=== PATIENT | male | born 1950 | race Caucasian/White ===

== ENCOUNTER 2017-08-02 07:14 | Emergency (ER) | payer BC, MEDICARE ==
--- NOTE | 2017-08-02 07:45 | Emergency Department Record ---
History of Present Illness - General Chief Complaint: Abdominal Pain Stated Complaint: RLQ PAIN Time Seen by Provider: 08/02/17 07:28 Source: Patient Mode of Arrival: Ambulatory Limitations: No limitations - History of Present Illness Initial Comments: The patient is here due to RLQ pain for one day. The onset was yesterday and the pain has gradually worsened. The pain is sharp and aching and is not associated with any nausea, vomiting, diarrhea, dysuria, or fever. He has had a kidney stone in the past and has had bladder CA along with his gallbladder removed. Additionally he has had a R lower groin hernia repair many years ago. The patient does get worse with R hip and leg ROM at times. MD Complaint: Abdominal pain Onset/Timin -: Days(s) Location: RLQ Radiation: Back Severity scale (1-10): 6 Quality: Sharp Consistency: Constant Improves With: Nothing Worsens With: Movement Associated Symptoms: Denies other symptoms - Related Data Home Medications Medication Instructions Recorded Confirmed Last Taken Clopidogrel Bisulfate [Clopidogrel] 75 mg PO DAILY 08/02/17 08/02/17 Unknown Lisinopril 20 mg PO DAILY 08/02/17 08/02/17 Unknown Metformin HCl 1,000 mg PO BID 08/02/17 08/02/17 Unknown Metoprolol Tartrate 25 mg PO DAILY 08/02/17 08/02/17 Unknown Omeprazole [Prilosec] 20 mg PO DAILY 08/02/17 08/02/17 Unknown Pioglitazone HCl 45 mg PO DAILY 08/02/17 08/02/17 Unknown Allergies Allergy/AdvReac Type Severity Reaction Status Date / Time No Known Drug Allergies Allergy Verified 08/02/17 07:34 Travel Screening - Travel/Exposure Within Last 30 Days Have you traveled within the last 30 days?: No Review of Systems Constitutional: Denies: Chills, Fever Eyes: Denies: Eye discharge ENT: Denies: Congestion Respiratory: Denies: Cough, Dyspnea Past Medical History - SOCIAL HISTORY Smoking Status: Never smoker Alcohol Use: Rare Drug Use: None - RESPIRATORY Hx Respiratory Disorders: No - CARDIOVASCULAR Hx Cardio Disorders: Yes Hx Abnormal EKG: Yes Hx Hypertension: Yes - NEURO Hx Neuro Disorders: No - GI Hx GI Disorders: Yes Hx Reflux: Yes - Hx Genitourinary Disorders: Yes Hx Kidney Stones: Yes Hx Prostate Problems: Yes - ENDOCRINE Hx Endocrine Disorders: Yes Hx Diabetes: Yes (type 2) - MUSCULOSKELETAL Hx Musculoskeletal Disorders: Yes Hx Arthritis: Yes - PSYCH Hx Psych Problems: No - HEMATOLOGY/ONCOLOGY Hx Hematology/Oncology Disorders: Yes Hx Cancer: Yes Hx Chemotherapy: Yes Hx Radiation Therapy: No Family Medical History Any Significant Family History?: No Physical Exam - General General Appearance: Alert, Oriented x3, Cooperative, No acute distress - Head Head exam: Atraumatic, Normocephalic, Normal inspection - Eye Eye exam: Normal appearance, PERRL - Neck Neck exam: Normal inspection, Full ROM. negative: Tenderness - Respiratory Respiratory exam: Normal lung sounds bilaterally. negative: Respiratory distress - Cardiovascular Cardiovascular Exam: Regular rate, Normal rhythm, Normal heart sounds - GI/Abdominal GI/Abdominal exam: Soft, Normal bowel sounds, Tenderness (There is mild RLQ tenderness to palpation). negative: Rebound, Rigid - Extremities Extremities exam: Normal inspection, Full ROM, Normal capillary refill. negative: Tenderness - Neurological Neurological exam: Alert. negative: Motor sensory deficit Course Vital Signs 08/02/17 07:17 Temperature 97.7 F Pulse Rate 56 L Respiratory 20 Rate Blood Pressure 176/93 Pulse Ox 98 - Reevaluation(s) Reevaluation #1: The patient is doing better at this time. He is having no pain at rest but is having pain with abdominal wall flexing and ROM of the R hip. At this time the pain seems to be more muscular in origin. I did explain the normal lab, CT, and UA results. I also did discuss the very mildly elevated Lipase but do not feel that is the cause of his issues. He is to see his family doctor for recheck later this week or early next week and to take Tylenol for pain. 08/02/17 09:24 Medical Decision Making - Data Complexity MDM Data: Labs Ordered and/or Reviewed, X-Ray Ordered and/or Reviewed - Lab Data Result diagrams: 08/02/17 07:47 08/02/17 07:47 - Radiology Data Radiology results: Report reviewed (CT: Neg kidney stone or hydro. Neg for any acute abnormality.) Disposition Disposition: Discharge Clinical Impression: Abdominal pain Qualifiers: Abdominal location: right lower quadrant Qualified Code(s): R10.31 - Right lower quadrant pain Disposition: Home, Self-Care Condition: (2) Stable Instructions: Abdominal Pain (ED) Additional Instructions: Please take Tylenol for pain and please see your family doctor for recheck later this week. Return to the ER for any worsening pain, fever, or vomiting. Forms: Patient Portal Access Time of Disposition: 09:27 Quality - Quality Measures Quality Measures: N/A - Blood Pressure Screening View Details: Yes Does Patient Have Any of the Following: Active Dx of HTN Blood Pressure Classification: Hypertensive Reading Systolic Measurement: 176 Diastolic Measurement: 93 Screening for High Blood Pressure: Patient Exclusion, Hx of HTN [[id number]]
[2017-08-02 07:58] LABS: BASO % 0.8 % (0-6); EOS % 5.3 % (0-6); GRAN % 57.2 % (47-80); HEMATOCRIT 40.8 % (42.0-52.0); HEMOGLOBIN 13.6 gm/dl (14.0-18.0); LYMPH % 25.5 % (16-45); MEAN CELL VOLUME 89.5 fl (81-97); MEAN CORPUSCULAR HEMOGLOBIN 29.8 pg (27-33); MEAN CORPUSCULAR HGB CONC 33.3 g/dl (32-36); MEAN PLATELET VOLUME 11.2 fl (7.4-10.4); MONO % 11.2 % (0-9); PLATELET COUNT 98 K/uL (130-400); RED BLOOD COUNT 4.56 M/uL (4.40-5.70); RED CELL DISTRIBUTION WIDTH 13.8 % (11.5-14.5); WHITE BLOOD COUNT W/O DIFF 4.7 K/uL (4.2-12.2)
[2017-08-02 08:12] LABS: BLOOD UREA NITROGEN 20 mg/dL (8-23); CREATININE 0.8 mg/dL (0.7-1.2); EST GLOMERULAR FILTRATION RATE > 60 mL/min
[2017-08-02 08:13] LABS: TOTAL PROTEIN 6.6 g/dL (6.6-8.7)
[2017-08-02 08:15] LABS: GLUCOSE,RANDOM 238 mg/dL (74-109)
[2017-08-02 08:17] LABS: ALT/SGPT 28 U/L (<41)
[2017-08-02 08:18] LABS: ALBUMIN 4.3 g/dL (4.0-5.0); ALKALINE PHOSPHATASE 210 U/L (40-129); AST/SGOT 20 U/L (10.0-50.0); LIPASE 78 U/L (13-60)
[2017-08-02 08:20] LABS: BILIRUBIN,DIRECT < 0.2 mg/dL (0-0.3)
[2017-08-02] MEDS ORDERED: KETOROLAC 30 MG/ML VIAL IVP ONE (08:55)
[2017-08-02 08:57] LABS: URINE APPEARANCE CLEAR; URINE BILIRUBIN NEGATIVE (NEGATIVE); URINE BLOOD NEGATIVE (NEGATIVE); URINE COLOR YELLOW; URINE GLUCOSE (UA) NEGATIVE (NEGATIVE); URINE KETONE NEGATIVE (NEGATIVE); URINE LEUKOCYTE ESTERASE NEGATIVE (NEGATIVE); URINE NITRITE NEGATIVE (NEGATIVE); URINE PROTEIN TRACE (NEGATIVE); URINE UROBILINOGEN 0.2 E.U./dL (0.20 - 1.00)
[2017-08-02 09:16] LABS: URINE EPITHELIAL CELLS NONE SEEN (FEW); URINE RBC NONE SEEN (NONE SEEN); URINE WBC NONE SEEN (0-2/hpf)
--- NOTE | 2017-08-04 09:18 | CT SCAN REPORT ---
EXAM: EMERGENCY CT OF THE ABDOMEN AND PELVIS WITHOUT CONTRAST HISTORY: RIGHT LOWER QUADRANT PAIN RADIATING TO RIGHT FLANK AND RIGHT SCROTUM. TECHNIQUE: Axial CT scan of the abdomen was performed without oral or IV contrast. Comparison: CT urogram 02/16/15. FINDINGS: Surgical clips in the gallbladder fossa as before consistent with prior cholecystectomy. No intrarenal calculi identified on either side. There is probably some postop change along the medial aspect of the lower pole of the left kidney also present previously. No hydronephrosis or hydroureter is seen on either side. As such it is somewhat difficult to follow the entire course of both ureters in their nondilated state throughout the retroperitoneum and pelvis, but no definite ureteral calculus seen on either side and no bladder calculus evident. Evaluation of the bowel and viscera is quite limited without oral or IV contrast. Given this limitation, no definite hepatic, splenic, adrenal, pancreatic, or renal mass identified. There is a very small amount of nonspecific free fluid in the pelvis. No free intraperitoneal air identified. Small periumbilical anterior abdominal wall hernia containing adipose tissue, but no bowel. IMPRESSION: 1. NO DEFINITE URINARY TRACT CALCULI OR HYDRONEPHROSIS IDENTIFIED. 2. THERE IS A VERY SMALL AMOUNT OF FREE FLUID IN THE PELVIS. NO FREE AIR EVIDENT. 3. DEGENERATIVE CHANGE IN THE LOWER LUMBAR SPINE. 4. SMALL PERIUMBILICAL ANTERIOR ABDOMINAL WALL HERNIA CONTAINING ADIPOSE TISSUE , BUT NO BOWEL. 5. POSTOP CHOLECYSTECTOMY. JOB NUMBER: [id number] [facility]
== END 2017-08-02 09:40 | disposition home or self-care (01) ==
LOC: ER 07:14
DX: R10.31 Right lower quadrant pain (principal); Z85.51 Personal history of malignant neoplasm of bladder; I10 Essential (primary) hypertension; Z87.442 Personal history of urinary calculi
CPT/HCPCS: 74176; 80048; 80076; 81001; 83690; 85025; 96374; 99284; J1885